=== PATIENT | male | born 1965 | race Hispanic/Latino ===

== ENCOUNTER 2018-04-02 20:41 | Emergency (ER) | payer BC ==
[~2018-04-02] VITALS: Ht 177.8 cm; Wt 90.7 kg
[2018-04-02] MEDS ORDERED: PEPCID20 MG PO (21:37)
[2018-04-02] MEDS ORDERED: IBUPROFEN400 MG PO (21:37)
[2018-04-02] MEDS ORDERED: ZOFRAN ODT4 MG SL (21:37)
[2018-04-02] MEDS ORDERED: AMLODIPINE BESYL5 MG PO (21:39)
== END 2018-04-02 21:45 | disposition home or self-care (01) ==
LOC: FSED 20:41
DX: R19.7 Diarrhea, unspecified (principal); R10.84 Generalized abdominal pain; R11.0 Nausea; A09 Infectious gastroenteritis and colitis, unspecified; I10 Essential (primary) hypertension
CPT/HCPCS: 99282

== ENCOUNTER → 2021-04-08 | Outpatient (CLI) | payer BC ==
[~2021-04-08] MED LIST: AMLODIPINE BESYL5 MG PO; IBUPROFEN400 MG PO; IOPAMIDOL 370 MG/ML 200 ML INFUS..BTL INJ ONE; PEPCID20 MG PO; SODIUM CHLORIDE 0.9% 100 ML ONE; ZOFRAN ODT4 MG SL
== END ==
LOC: CT 07:24
PROVIDERS: ATTEND Internal Medicine Cardiovascular Disease
DX: Q27.33 Arteriovenous malformation of digestive system vessel (principal)
CPT/HCPCS: 74174; J7050; Q9967